=== PATIENT | female | born 1950 | race Caucasian/White ===

== ENCOUNTER → 2021-10-30 13:26 | Outpatient (BNVA) | payer MEDICARE, BC, SELFPAY | PROVIDERS: PCP Family Medicine Sports Medicine; Referring Provider Family Medicine Sports Medicine; Visit Provider Internal Medicine | DX: E89.0 Postprocedural hypothyroidism (principal); K52.9 Noninfective gastroenteritis and colitis, unspecified; E66.01 Morbid (severe) obesity due to excess calories; Z68.41 Body mass index [BMI] 40.0-44.9, adult; F17.210 Nicotine dependence, cigarettes, uncomplicated | CPT/HCPCS: 84439; 84443; 99204; 99205 ==

== ENCOUNTER 2021-12-30 10:31 | Outpatient (CLI) | payer MEDICARE, BC, SELFPAY ==
[2021-12-30 12:07] LABS: Free T4 Free Thyroxine 1.46 ng/dL (0.82-1.77); Thyroid Stimulating Hormone 1.44 uIU/mL (0.27-4.20)
== END 2021-12-30 10:32 | disposition home or self-care (01) ==
PROVIDERS: PCP Family Medicine Sports Medicine; Visit Provider Internal Medicine
DX: E89.0 Postprocedural hypothyroidism (principal); E78.5 Hyperlipidemia, unspecified; K52.9 Noninfective gastroenteritis and colitis, unspecified; E66.01 Morbid (severe) obesity due to excess calories; F17.200 Nicotine dependence, unspecified, uncomplicated; Z68.41 Body mass index [BMI] 40.0-44.9, adult
CPT/HCPCS: 36415; 84439; 84443; 99214

== ENCOUNTER 2022-02-24 09:55 | Outpatient (CLI) | payer MEDICARE, BC, SELFPAY ==
[2022-02-24 11:28] LABS: Chol HDL Ratio 8.12 mg/dL (0.0-4.40); Cholesterol 203 mg/dL (0-200); Free T4 Free Thyroxine 1.49 ng/dL (0.82-1.77); HDL Cholesterol 25 mg/dL (60-100); LDL Cholesterol Calculated 138 mg/dL (50-129); LDL HDL Ratio 5.52 RATIO (0.00-3.22); Thyroid Stimulating Hormone 0.71 uIU/mL (0.27-4.20); Triglycerides 198 mg/dL (0-150)
== END 2022-02-24 09:56 | disposition home or self-care (01) ==
LOC: LAB 09:59
PROVIDERS: Visit Provider Internal Medicine
DX: E89.0 Postprocedural hypothyroidism (principal)
CPT/HCPCS: 36415; 80061; 84439; 84443

== ENCOUNTER → 2022-02-27 11:07 | Outpatient (BNVA) | payer MEDICARE, BC, SELFPAY | PROVIDERS: Visit Provider Internal Medicine | DX: E89.0 Postprocedural hypothyroidism (principal); E78.5 Hyperlipidemia, unspecified; K52.9 Noninfective gastroenteritis and colitis, unspecified; E66.01 Morbid (severe) obesity due to excess calories; F17.210 Nicotine dependence, cigarettes, uncomplicated; Z68.41 Body mass index [BMI] 40.0-44.9, adult | CPT/HCPCS: 99214 ==

== ENCOUNTER → 2022-05-01 07:53 | Outpatient (BNVA) | payer MEDICARE, BC, SELFPAY | PROVIDERS: Visit Provider Internal Medicine | DX: E89.0 Postprocedural hypothyroidism (principal); E07.9 Disorder of thyroid, unspecified; E78.5 Hyperlipidemia, unspecified; E66.01 Morbid (severe) obesity due to excess calories; R19.7 Diarrhea, unspecified; Z79.890 Hormone replacement therapy; Z68.39 Body mass index [BMI] 39.0-39.9, adult | CPT/HCPCS: 36415; 84439; 84443; 87506; 99214 ==

== ENCOUNTER → 2022-07-11 17:42 | Outpatient (BNVA) | payer MEDICARE, BC, SELFPAY | PROVIDERS: Visit Provider Family Medicine | DX: N39.0 Urinary tract infection, site not specified (principal) | CPT/HCPCS: 81003 ==

== ENCOUNTER → 2022-07-12 11:58 | Outpatient (BNVA) | payer MEDICARE, BC, SELFPAY | PROVIDERS: PCP Family Medicine; Visit Provider Registered Nurse Neonatal Intensive Care | DX: N39.0 Urinary tract infection, site not specified (principal) | CPT/HCPCS: 81000; 87086 ==

== ENCOUNTER 2022-07-15 11:26 | Outpatient (CLI) | payer MEDICARE, BC, SELFPAY ==
[2022-07-15 12:45] LABS: Chol HDL Ratio 6.63 mg/dL (0.0-4.40); Cholesterol 232 mg/dL (0-200); Free T4 Free Thyroxine 0.23 ng/dL (0.82-1.77); HDL Cholesterol 35 mg/dL (60-100); LDL Cholesterol Calculated 166 mg/dL (50-129); LDL HDL Ratio 4.74 RATIO (0.00-3.22); Triglycerides 155 mg/dL (0-150)
== END 2022-07-15 11:27 | disposition home or self-care (01) ==
PROVIDERS: PCP Family Medicine; Visit Provider Internal Medicine
DX: E78.5 Hyperlipidemia, unspecified (principal); E89.0 Postprocedural hypothyroidism
CPT/HCPCS: 80061; 84439; 84443

== ENCOUNTER → 2022-07-22 10:27 | Outpatient (BNVA) | payer MEDICARE, BC, SELFPAY | PROVIDERS: PCP Family Medicine; Visit Provider Internal Medicine | DX: E89.0 Postprocedural hypothyroidism (principal); E07.9 Disorder of thyroid, unspecified; E78.5 Hyperlipidemia, unspecified; K52.9 Noninfective gastroenteritis and colitis, unspecified; E66.01 Morbid (severe) obesity due to excess calories; Z79.4 Long term (current) use of insulin; Z79.890 Hormone replacement therapy; Z68.38 Body mass index [BMI] 38.0-38.9, adult | CPT/HCPCS: 99214 ==